=== PATIENT | female | born 1955 | race Caucasian/White ===

== ENCOUNTER 2016-12-29 23:56 | Inpatient (IN) | payer OTHER, MEDICAID ==
[~2016-12-29] VITALS: Ht 165.1 cm; Wt 68.9 kg
[2016-12-30] VITALS (7 sets, daily range): BP systolic 122–159
[2016-12-30] MEDS ORDERED: HYDROcodone/ACETAMIN 7.5-325 MG TAB PO ONE (01:15)
[2016-12-30] MEDS ORDERED: DIPHENHYDRAMINE INJ 50 MG/ML VIAL IVP ONE (02:15)
[2016-12-30] MEDS ORDERED: HYDROmorphone 1 MG INJ. 1 MG/ML AMPUL IVP ONE ×2 (02:15→03:15)
[2016-12-30] MEDS ORDERED: NACL 0.9% 1,000 ML IV ONE (02:15)
[2016-12-30 03:42] LABS: HEMATOCRIT 38.2 % (36-48); HEMOGLOBIN 13.1 g/dL (12.0-16.0); MEAN CORPUSCULAR HEMOGLOBIN 30 pg (27-31); MEAN CORPUSCULAR HGB CONC 34 % (32-36); MEAN CORPUSCULAR VOLUME 87 fL (79.0-98.0); PLATELET COUNT (AUTO) 330 K/uL (130-430); RED BLOOD CELL COUNT(AUTO) 4.39 MIL/uL (4.2-6.2); RED CELL DISTRIBUTION WIDTH 13.6 % (9.0-15.0); WHITE BLOOD COUNT (AUTO) 16.1 K/uL (4.8-10.8)
[2016-12-30 03:43] LABS: CALCIUM 9.3 mg/dL (8.4-11.0); CREATININE 0.95 mg/dL (0.55-1.30)
[2016-12-30 03:47] LABS: PROTHROMBIN TIME 10.4 SECS (9.5-12.5)
[2016-12-30 03:48] LABS: ALBUMIN 4.3 g/dL (3.4-4.8); TOTAL BILIRUBIN 0.4 mg/dL (0.0-1.0); TOTAL PROTEIN, SERUM 7.9 g/dL (6.4-8.3)
[2016-12-30 04:08] LABS: BAND % (MANUAL) 9 % (0-6); BASOPHILS % (MANUAL) 0 % (0-2); EOSINOPHILS % (MANUAL) 0 % (0-7); LYMPHOCYTES % (MANUAL) 13 % (20-46); MONOCYTES % (MANUAL) 8 % (0-11)
[2016-12-30] MEDS ORDERED: MORPHINE 4 MG/ML INJ. SYRINGE IVP PRN (04:15)
[2016-12-30] MEDS ORDERED: DIPHENHYDRAMINE HCL 50 MG CAPSULE PO ONE (07:00)
[2016-12-30] MEDS: ENOXAPARIN SODIUM 40 MG/0.4 ML SYRINGE SUBCUT SCH (08:24)
[2016-12-30] MEDS: HYDROmorphone 2 MG/ML VIAL IVP PRN ×4 (08:27→22:41)
[2016-12-30] MEDS ORDERED: DOCUSATE SODIUM 100 MG CAPSULE PO PRN (09:45)
[2016-12-30] MEDS ORDERED: LORazepam 2 MG/ML VIAL IVP PRN (09:45)
[2016-12-30] MEDS ORDERED: POTASSIUM CHLORIDE 10 MEQ TAB.PRT.SR PO PRN (09:45)
[2016-12-30] MEDS ORDERED: ACETAMINOPHEN 325 MG TABLET PO PRN (09:45)
[2016-12-30] MEDS ORDERED: TETANUS IMMUNE GLOBULIN/PF 250 UNITS/SYR (HYPERTET) I.M. ONE (09:45)
[2016-12-30] MEDS ORDERED: MAGNESIUM SULFATE 50 ML IV PRN (09:45)
[2016-12-30] MEDS ORDERED: DIPH-TET-PERTUS Vaccine 0.5 ML VIAL (ADACEL) I.M. ONE (13:45)
[2016-12-30] MEDS ORDERED: DIPH-TET Vacc 0.5 ML VIAL I.M. ONE (14:00)
[2016-12-30] MEDS: ALPRAZolam 0.25 MG TABLET PO PRN (14:21)
[2016-12-30] MEDS: oxyCODONE HCL 5 MG TABLET PO PRN (18:42)
[2016-12-30 19:11] LABS: BILIRUBIN,URINE NEGATIVE (NEGATIVE); BLOOD, URINE 3+ (NEGATIVE); CLARITY/URINE CLEAR (CLEAR); COLOR,URINE YELLOW (YELLOW); GLUCOSE,URINE NEGATIVE (NEGATIVE); KETONES,URINE NEGATIVE (NEGATIVE); LEUKOCYTE ESTERASE ,URINE NEGATIVE (NEGATIVE); NITRITE, URINE NEGATIVE (NEGATIVE); PROTEIN URINE TRACE (NEGATIVE); UROBILINOGEN,URINE 0.2 (0.2-1.0)
[2016-12-30 19:17] LABS: HCG,QUAL RESULT NEGATIVE (NEGATIVE)
[2016-12-30 19:30] LABS: BACTERIA,URINE FEW /HPF (None Seen); MUCUS,URINE 1+ /LPF (None Seen); RBC,URINE 50-80 /HPF (0-3); WBC,URINE 0-3 /HPF (0-3)
[2016-12-30] MEDS: QUEtiapine FUMARATE 25 MG TABLET PO SCH (20:24)
[2016-12-30] MEDS: METHADONE HCL 10 MG TABLET PO PRN (20:24)
[2016-12-30] MEDS: METOPROLOL TARTRATE 25 MG TABLET PO SCH (20:30)
[2016-12-30] MEDS: traZODone HCL 50 MG TABLET (DESYREL) PO SCH (20:33)
[2016-12-31] MEDS: THIAMINE HCL 100 MG TABLET PO SCH ×2 (00:34→08:24)
[2016-12-31] MEDS: VALPROIC ACID 250 MG CAPSULE (DEPAKENE) PO SCH ×3 (00:35→21:41)
[2016-12-31] MEDS: ZOLPIDEM TARTRATE 5 MG TABLET PO PRN (00:35)
[2016-12-31] MEDS: ALPRAZolam 0.25 MG TABLET PO PRN ×2 (02:14→10:59)
[2016-12-31 04:19] VITALS: BP_SYST 159
[2016-12-31] MEDS: ONDANSETRON HCL 4 MG/2 ML VIAL IVP PRN ×2 (04:39→09:00)
[2016-12-31] MEDS: HYDROmorphone 2 MG/ML VIAL IVP PRN (04:41)
[2016-12-31 07:06] LABS: CALCIUM 8.5 mg/dL (8.4-11.0); CREATININE 0.56 mg/dL (0.55-1.30); POTASSIUM 3.8 mmol/L (3.5-5.1)
[2016-12-31 07:58] LABS: BASOPHILS % (AUTO) 0.2 % (0.0-2.0); EOSINOPHILS % (AUTO) 0.2 % (0.0-4.0); HEMATOCRIT 35.4 % (36-48); LYMPHOCYTES # (AUTO) 1.2 K/uL (1.0-5.5); MEAN CORPUSCULAR HEMOGLOBIN 30 pg (27-31); MEAN CORPUSCULAR HGB CONC 34 % (32-36); MONOCYTES # (AUTO) 0.6 K/uL (0.0-1.0); MONOCYTES % (AUTO) 4.9 % (1.7-9.3); NEUTROPHILS # (AUTO) 9.5 K/uL (1.8-7.7); PLATELET COUNT (AUTO) 317 K/uL (130-430); RED BLOOD CELL COUNT(AUTO) 3.98 MIL/uL (4.2-6.2); RED CELL DISTRIBUTION WIDTH 13.5 % (9.0-15.0); WHITE BLOOD COUNT (AUTO) 11.3 K/uL (4.8-10.8)
[2016-12-31] MEDS: oxyCODONE HCL 5 MG TABLET PO PRN (08:24)
[2016-12-31 08:30] LABS: MEAN CORPUSCULAR VOLUME 89 fL (79.0-98.0)
[2016-12-31] MEDS: METOPROLOL TARTRATE 25 MG TABLET PO SCH ×2 (08:30→21:43)
[2016-12-31] MEDS: ENOXAPARIN SODIUM 40 MG/0.4 ML SYRINGE SUBCUT SCH (08:31)
[2016-12-31 08:32] VITALS: BP_SYST 177
[2016-12-31 10:31] LABS: NEUTROPHILS % (AUTO) 83.7 % (40.0-70.0)
[2016-12-31 12:00] VITALS: BP_SYST 182
[2016-12-31] MEDS ORDERED: LR 1,000 ML IV SCH (14:10)
[2016-12-31] MEDS ORDERED: POLYMYXIN 500,000/BACIT.10,000 UNITS in NS IRR 1 L IR ONE (14:12)
[2016-12-31] MEDS ORDERED: HYDROmorphone 2 MG/ML VIAL IVP PRN ×2 (14:15)
[2016-12-31] MEDS ORDERED: MEPERIDINE HCL/PF 25 MG/ML DISP.SYRIN IVP PRN (14:15)
[2016-12-31] MEDS ORDERED: HYDROmorphone 1 MG INJ. 1 MG/ML AMPUL IVP PRN (14:15)
[2016-12-31] MEDS ORDERED: MILK OF MAGNESIA 30 ML UDC PO PRN (16:00)
[2016-12-31] MEDS ORDERED: ONDANSETRON HCL 4 MG/2 ML VIAL IVP PRN (16:00)
[2016-12-31] MEDS ORDERED: DIPHENHYDRAMINE HCL 25 MG CAPSULE PO PRN (16:00)
[2016-12-31] MEDS ORDERED: DIPHENHYDRAMINE INJ 50 MG/ML VIAL IVP PRN (16:00)
[2016-12-31] MEDS ORDERED: HYDROmorphone 2 MG/ML VIAL ONE (16:20)
[2016-12-31 16:30] VITALS: BP_SYST 145
[2016-12-31] MEDS: KETOROLAC TROMETHAMINE 15 MG VIAL IVP SCH (18:07)
[2016-12-31 19:31] VITALS: BP_SYST 152
[2016-12-31] MEDS: traZODone HCL 50 MG TABLET (DESYREL) PO SCH (21:43)
[2016-12-31] MEDS: SENNOSIDES 8.6 MG TABLET PO SCH (21:44)
[2016-12-31] MEDS: QUEtiapine FUMARATE 25 MG TABLET PO SCH (21:44)
[2017-01-01] VITALS (8 sets, daily range): BP systolic 89–137
[2017-01-01] MEDS: KETOROLAC TROMETHAMINE 15 MG VIAL IVP SCH ×2 (00:27→06:03)
[2017-01-01] MEDS: HYDROmorphone 2 MG/ML VIAL IVP PRN ×2 (04:19→15:21)
[2017-01-01 07:05] LABS: BASOPHILS % (AUTO) 0.3 % (0.0-2.0); EOSINOPHILS # (AUTO) 0.2 K/uL (0.0-0.4); EOSINOPHILS % (AUTO) 1.8 % (0.0-4.0); HEMATOCRIT 27.9 % (36-48); HEMOGLOBIN 9.4 g/dL (12.0-16.0); LYMPHOCYTES # (AUTO) 2.3 K/uL (1.0-5.5); MEAN CORPUSCULAR HEMOGLOBIN 30 pg (27-31); MEAN CORPUSCULAR HGB CONC 34 % (32-36); MEAN CORPUSCULAR VOLUME 88 fL (79.0-98.0); MONOCYTES # (AUTO) 0.7 K/uL (0.0-1.0); MONOCYTES % (AUTO) 7.1 % (1.7-9.3); NEUTROPHILS # (AUTO) 6.4 K/uL (1.8-7.7); NEUTROPHILS % (AUTO) 66.8 % (40.0-70.0); PLATELET COUNT (AUTO) 272 K/uL (130-430); RED BLOOD CELL COUNT(AUTO) 3.16 MIL/uL (4.2-6.2); RED CELL DISTRIBUTION WIDTH 13.4 % (9.0-15.0); WHITE BLOOD COUNT (AUTO) 9.6 K/uL (4.8-10.8)
[2017-01-01 07:10] LABS: CALCIUM 7.7 mg/dL (8.4-11.0); CREATININE 1.02 mg/dL (0.55-1.30); POTASSIUM 3.4 mmol/L (3.5-5.1)
[2017-01-01] MEDS: MULTIVITAMINS TAB 1 TABLET PO SCH (08:40)
[2017-01-01] MEDS: VALPROIC ACID 250 MG CAPSULE (DEPAKENE) PO SCH ×2 (08:40→21:15)
[2017-01-01] MEDS: ASCORBIC ACID 500 MG TABLET PO SCH ×2 (08:40→21:13)
[2017-01-01] MEDS: PANTOPRAZOLE SODIUM 40 MG TAB PO SCH (08:40)
[2017-01-01] MEDS: METOPROLOL TARTRATE 25 MG TABLET PO SCH ×2 (08:41→21:00)
[2017-01-01] MEDS: ENOXAPARIN SODIUM 40 MG/0.4 ML SYRINGE SUBCUT SCH (08:42)
[2017-01-01] MEDS: THIAMINE HCL 100 MG TABLET PO SCH (09:01)
[2017-01-01] MEDS: oxyCODONE HCL 5 MG TABLET PO PRN (09:10)
[2017-01-01] MEDS: ALPRAZolam 0.25 MG TABLET PO PRN (12:56)
[2017-01-01 18:34] LABS: FOLATE (FOLIC ACID) >20.0 ng/mL (>3.0)
[2017-01-01] MEDS: METHADONE HCL 10 MG TABLET PO PRN (18:45)
[2017-01-01] MEDS: QUEtiapine FUMARATE 25 MG TABLET PO SCH (21:14)
[2017-01-01] MEDS: SENNOSIDES 8.6 MG TABLET PO SCH (21:14)
[2017-01-01] MEDS: traZODone HCL 50 MG TABLET (DESYREL) PO SCH (21:14)
[2017-01-02] MEDS: ZOLPIDEM TARTRATE 5 MG TABLET PO PRN (00:23)
[2017-01-02] MEDS: oxyCODONE HCL 5 MG TABLET PO PRN ×3 (00:24→20:56)
[2017-01-02 00:43] VITALS: BP_SYST 100
[2017-01-02 06:30] VITALS: BP_SYST 99
[2017-01-02 06:51] LABS: HEMOGLOBIN 9.3 g/dL (12.0-16.0); MEAN CORPUSCULAR HEMOGLOBIN 30 pg (27-31); MEAN CORPUSCULAR HGB CONC 33 % (32-36); MEAN CORPUSCULAR VOLUME 89 fL (79.0-98.0); PLATELET COUNT (AUTO) 276 K/uL (130-430); RED BLOOD CELL COUNT(AUTO) 3.16 MIL/uL (4.2-6.2); RED CELL DISTRIBUTION WIDTH 13.1 % (9.0-15.0); WHITE BLOOD COUNT (AUTO) 8.2 K/uL (4.8-10.8)
[2017-01-02 07:12] LABS: CREATININE 0.75 mg/dL (0.55-1.30); POTASSIUM 3.9 mmol/L (3.5-5.1)
[2017-01-02 08:03] VITALS: BP_SYST 138
[2017-01-02] MEDS: ENOXAPARIN SODIUM 40 MG/0.4 ML SYRINGE SUBCUT SCH (09:15)
[2017-01-02] MEDS: MULTIVITAMINS TAB 1 TABLET PO SCH (09:16)
[2017-01-02] MEDS: THIAMINE HCL 100 MG TABLET PO SCH (09:16)
[2017-01-02] MEDS: VALPROIC ACID 250 MG CAPSULE (DEPAKENE) PO SCH ×2 (09:16→20:55)
[2017-01-02] MEDS: METOPROLOL TARTRATE 25 MG TABLET PO SCH ×2 (09:17→20:54)
[2017-01-02] MEDS: PANTOPRAZOLE SODIUM 40 MG TAB PO SCH (09:17)
[2017-01-02] MEDS: ASCORBIC ACID 500 MG TABLET PO SCH ×2 (09:17→20:55)
[2017-01-02] MEDS: ALPRAZolam 0.25 MG TABLET PO PRN (09:18)
[2017-01-02 09:24] LABS: ATYPICAL LYMPHOCYTES % 0 % (0-0); BAND % (MANUAL) 5 % (0-6); BASOPHILS % (MANUAL) 0 % (0-2); EOSINOPHILS % (MANUAL) 4 % (0-7); LYMPHOCYTES % (MANUAL) 22 % (20-46); MONOCYTES % (MANUAL) 8 % (0-11)
[2017-01-02 12:40] VITALS: BP_SYST 111
[2017-01-02] MEDS: HYDROmorphone 2 MG/ML VIAL IVP PRN (13:07)
[2017-01-02] MEDS: METHADONE HCL 10 MG TABLET PO PRN (16:50)
[2017-01-02 17:56] VITALS: BP_SYST 125
[2017-01-02 20:00] VITALS: BP_SYST 95
[2017-01-02] MEDS: QUEtiapine FUMARATE 25 MG TABLET PO SCH (20:54)
[2017-01-02] MEDS: traZODone HCL 50 MG TABLET (DESYREL) PO SCH (20:55)
[2017-01-02] MEDS: SENNOSIDES 8.6 MG TABLET PO SCH (20:55)
[2017-01-03] VITALS: BP_SYST 102
[2017-01-03] MEDS: HYDROmorphone 2 MG/ML VIAL IVP PRN ×2 (02:06→13:30)
[2017-01-03] MEDS ORDERED: ALENDRONATE SODIUM 70 MG TABLET (FOSAMAX) PO SCH (06:00)
[2017-01-03 06:05] VITALS: BP_SYST 134
[2017-01-03] MEDS: oxyCODONE HCL 5 MG TABLET PO PRN ×2 (06:14→16:47)
[2017-01-03 06:42] LABS: CALCIUM 8.2 mg/dL (8.4-11.0); CREATININE 0.72 mg/dL (0.55-1.30); POTASSIUM 3.9 mmol/L (3.5-5.1)
[2017-01-03 06:51] LABS: BASOPHILS # (AUTO) 0.1 K/uL (0.0-0.2); BASOPHILS % (AUTO) 1.1 % (0.0-2.0); EOSINOPHILS # (AUTO) 0.4 K/uL (0.0-0.4); HEMATOCRIT 25.3 % (36-48); HEMOGLOBIN 8.5 g/dL (12.0-16.0); LYMPHOCYTES # (AUTO) 2.1 K/uL (1.0-5.5); LYMPHOCYTES % (AUTO) 28.7 % (20.5-51.5); MEAN CORPUSCULAR HEMOGLOBIN 29 pg (27-31); MEAN CORPUSCULAR HGB CONC 34 % (32-36); MEAN CORPUSCULAR VOLUME 87 fL (79.0-98.0); MONOCYTES # (AUTO) 0.7 K/uL (0.0-1.0); MONOCYTES % (AUTO) 10.1 % (1.7-9.3); NEUTROPHILS % (AUTO) 54.1 % (40.0-70.0); PLATELET COUNT (AUTO) 268 K/uL (130-430); WHITE BLOOD COUNT (AUTO) 7.3 K/uL (4.8-10.8)
[2017-01-03 08:00] VITALS: BP_SYST 136
[2017-01-03] MEDS: ASCORBIC ACID 500 MG TABLET PO SCH (08:45)
[2017-01-03] MEDS: MULTIVITAMINS TAB 1 TABLET PO SCH (08:45)
[2017-01-03] MEDS: PANTOPRAZOLE SODIUM 40 MG TAB PO SCH (08:45)
[2017-01-03] MEDS: VALPROIC ACID 250 MG CAPSULE (DEPAKENE) PO SCH (08:45)
[2017-01-03] MEDS: ALPRAZolam 0.25 MG TABLET PO PRN (08:46)
[2017-01-03] MEDS: METOPROLOL TARTRATE 25 MG TABLET PO SCH (08:46)
[2017-01-03] MEDS: ENOXAPARIN SODIUM 40 MG/0.4 ML SYRINGE SUBCUT SCH (08:47)
[2017-01-03 13:15] VITALS: BP_SYST 80
[2017-01-03 16:50] VITALS: BP_SYST 126
[2017-01-03 17:17] VITALS: BP_SYST 126
== END 2017-01-03 18:53 | DRG 481 ==
LOC: SED 23:56 → SMU 12-30 04:13
PROVIDERS: ADMIT General Practice; ATTEND General Practice
PROC: 0QS706Z Reposition Left Upper Femur with Intramedullary Internal Fixation Device, Open Approach (ICD-10-PCS; principal; 2016-12-31 13:00)
DX: S72.142A Displaced intertrochanteric fracture of left femur, initial encounter for closed fracture (principal); F11.20 Opioid dependence, uncomplicated; S72.002A Fracture of unspecified part of neck of left femur, initial encounter for closed fracture; I10 Essential (primary) hypertension; M81.0 Age-related osteoporosis without current pathological fracture; W10.8XXA Fall (on) (from) other stairs and steps, initial encounter; G89.4 Chronic pain syndrome; F10.20 Alcohol dependence, uncomplicated; Y90.9 Presence of alcohol in blood, level not specified; R26.81 Unsteadiness on feet; G40.909 Epilepsy, unspecified, not intractable, without status epilepticus; Y93.89 Activity, other specified; Y92.89 Other specified places as the place of occurrence of the external cause; Y99.8 Other external cause status
CPT/HCPCS: 36415; 70450-TC; 71010; 72170-TC; 76000; 80048; 80053; 81000-TC; 82607; 82746; 83735-TC; 84443-TC; 84703; 85007; 85025; 85027; 85610-TC; 85730-TC; 86886; 86900; 86901; 87081; 90714; 90715; 93005; 94010; 96361; 96374; 96375; 96376; 97116-GP; 97530-GP; 99285; J1170; J1200; J1650; J1885; J2270; J2405; J7030; Q0163

== ENCOUNTER 2018-04-03 16:11 | Emergency (ER) | payer OTHER, MEDICAID ==
[~2018-04-03] VITALS: Ht 167.6 cm; Wt 59.0 kg
[2018-04-03 16:20] VITALS: BP_SYST 117
--- NOTE | 2018-04-03 17:00 | NUR ---
Patient to ER bed 03 to gown for evaluation. Side rails up. Report given to VALENTIN Kirk
[2018-04-03 17:09] LABS: BILIRUBIN,URINE NEGATIVE (NEGATIVE); BLOOD, URINE NEGATIVE (NEGATIVE); CLARITY/URINE SL HAZY (CLEAR); COLOR,URINE YELLOW (YELLOW); GLUCOSE,URINE NEGATIVE (NEGATIVE); KETONES,URINE 2+ (NEGATIVE); LEUKOCYTE ESTERASE ,URINE NEGATIVE (NEGATIVE); NITRITE, URINE NEGATIVE (NEGATIVE); PROTEIN URINE 1+ (NEGATIVE); UROBILINOGEN,URINE 0.2 (0.2-1.0)
--- NOTE | 2018-04-03 17:19 | NUR ---
Pt complains of burning urination, swelling to right arm, hand, leg and foot for the past week. Pt denies trauma, n/v or fever. Pt states was at [facility] last Tuesday for UTI, abdominal hernia and swelling to R hand, was given ATB and pain medication. Pt states pain and swelling has increased since then and has more confusion than normal. Daughter states hearing has been decreasing since yesterday. No other injuries/complaints per pt or noted.
[2018-04-03 17:20] LABS: BACTERIA,URINE FEW /HPF (None Seen); MUCUS,URINE 1+ /LPF (None Seen); RBC,URINE 0-3 /HPF (0-3)
--- NOTE | 2018-04-03 17:30 | NUR ---
ER at bedside examining patient.
[2018-04-03] MEDS ORDERED: MORPHINE 4 MG/ML INJ. SYRINGE IM ONE (18:00)
--- NOTE | 2018-04-03 18:14 | NUR ---
Pain medication was given to pt, tolerated well
[2018-04-03 19:05] VITALS: BP_SYST 98
--- NOTE | 2018-04-03 19:05 | NUR ---
Patient given written and verbal discharge instructions and verbalizes understanding. ER MD discussed with patient the results and treatment provided. Patient in stable condition. ID arm band removed. No Rx given. Patient educated on pain management and to follow up with PMD. Pain Scale 2. Opportunity for questions provided and answered.
== END 2018-04-03 19:05 | disposition home or self-care (01) ==
LOC: SED 16:11
DX: N39.0 Urinary tract infection, site not specified (principal); M79.2 Neuralgia and neuritis, unspecified; F17.210 Nicotine dependence, cigarettes, uncomplicated; J44.9 Chronic obstructive pulmonary disease, unspecified; Z86.79 Personal history of other diseases of the circulatory system; Z88.2 Allergy status to sulfonamides
CPT/HCPCS: 81000; 96372; 99283; J2270